=== PATIENT | male | born 1965 | race Caucasian/White ===

== ENCOUNTER 2016-09-25 19:54 | Emergency (ER) | payer BC ==
[2016-09-25 20:01] VITALS: TEMP 97.9; O2SAT 95
--- NOTE | 2016-09-25 20:07 | EDPHY ---
H & P Stated Complaint: L hand lac from saw 20 min [employer] Source: Patient - Personal History Current Tetanus/Diphtheria Vaccine: Yes Tetanus Vaccine Date: 2014 - Medical/Surgical History Hx Asthma: No Hx Chronic Respiratory Disease: No Hx Diabetes: No Hx Cardiac Disease: No Hx Renal Disease: No Hx Cirrhosis: No Hx Alcoholism: No Hx HIV/AIDS: No Hx Splenectomy or Spleen Trauma: No Other PMH: healthy - Social History Smoking Status: Never smoked HPI/ROS: HPI CHIEF COMPLAINT: Left hand laceration HISTORY OF PRESENT ILLNESS: This patient very pleasant 51-year-old male, he presents emergency to the emergency room with a small 1 cm laceration/puncture wound to the left hand dorsal aspect in between the webspace of his 1st and 2nd digit. He is otherwise neurovascularly intact. Tells me his tetanus shot is up- to-date. This happened approximately 30 minutes ago. Denies any other areas of injury. Was cutting wood. There was no significant wood chips or debris involved. The saw slipped and punctured his left hand. He is neurovascularly intact, no tendon involvement. Full range of motion. Past Medical History: No significant medical history Past Surgical History: No significant surgical Social History: Denies daily use drugs alcohol tobacco products. Family History: Noncontributory. ROS REVIEW OF SYSTEMS: A comprehensive 10 point review of systems is otherwise negative aside from elements mentioned in the history of present illness. Exam Constitutional triage nursing summary reviewed, vital signs reviewed, awake/ alert. Eyes normal conjunctivae and sclera, EOMI, PERRLA. HENT normal inspection, atraumatic, moist mucus membranes, no epistaxis, neck supple/ no meningismus, no raccoon eyes. Respiratory clear to auscultation bilaterally, normal breath sounds, no respiratory distress, no wheezing. Cardiovascular rate normal, regular rhythm, no murmur, no edema, distal pulses normal. Gastrointestinal soft, non-tender, no rebound, no guarding, normal bowel sounds, no distension, no pulsatile mass. Genitourinary no CVA tenderness. Musculoskeletal no midline vertebral tenderness, full range of motion, no calf swelling, no tenderness of extremities, no meningismus, good pulses, neurovascularly intact. Left hand: Small less than 1 cm puncture wound: Dorsal aspect left hand between the 1st and 2nd digit webspace. Otherwise he is neurovascularly intact. No tendon vomit. No arterial vomit. No significant hand swelling. Skin pink, warm, & dry, no rash, skin atraumatic. Neurologic awake, alert and oriented x 3, AAOx3, moves all 4 extremities equally, motor intact, sensory intact, CN II-XII intact, normal cerebellar, normal vision, normal speech. Psychiatric normal mood/affect. Heme/Lymph/Immune no lymphadenopathy. Differential Diagnosis: Includes but is not limited to in a particular order, soft tissue injury, hand laceration, vascular injury, foreign body, bony a vomiting Medical Decision Making: Plan for this patient x-ray left hand and then patient will need laceration repaired wound cleaned out and wound care. Re-evaluation: (Kurt Sharma) Constitutional: Initial Vital Signs Temperature (C) 36.6 C 09/25/16 19:58 Heart Rate 52 L 09/25/16 19:58 Respiratory Rate 14 09/25/16 19:58 Blood Pressure 121/85 H 09/25/16 19:58 O2 Sat (%) 95 09/25/16 19:58 O2 Delivery Mode Room Air Allergies/Adverse Reactions: No Known Allergies Allergy (Unverified 09/25/16 19:58) Home Medications: Medication Instructions Recorded NK [No Known Home Meds] 09/25/16 Medical Decision Making - Diagnostics Imaging Results: Imaging Impressions Hand X-Ray 09/25/16 20:19 Impression: 1. No definite acute fracture. 2. Consider additional imaging if symptoms persist, if clinically indicated. Procedures: Procedure: Laceration repair. Verbal consent was obtained from the patient. The 0.5 cm laceration on the left hand was anesthetized in the usual fashion. The wound was irrigated, draped and explored to its base with a gloved finger. There were no deep structures involved. No tendon injury was identified. Exploration did not reveal foreign bodies. The wound was repaired with 5 0 Prolene, 1 simple interrupted suture. The wound repair was simple. The procedure was performed by myself. (Ralph Carlin) Departure - Departure Disposition: Home, Routine, Self-Care Clinical Impression: Laceration Condition: Good Instructions: Care For Your Stitches (ED), Laceration (ED) Additional Instructions: 1. Your sutures need to be removed in 12 days. 2. Please keep her wound clean, protected, dry and intact. 3. Watch for signs of infection. 4. You may get warm soapy water on it. Referrals: KIRSTEN AUGUSTE [Primary Care Provider] - As per Instructions
[2016-09-25 22:18] VITALS: BP 118/60; PULSE 53; RESP 16
== END 2016-09-25 22:18 | disposition home or self-care (01) ==
PROC: 0HQGXZZ Repair Left Hand Skin, External Approach (ICD-10-PCS; principal; 2016-09-25)
DX: S61.412A Laceration without foreign body of left hand, initial encounter (principal); W31.2XXA Contact with powered woodworking and forming machines, initial encounter